=== PATIENT | male | born 1945 | race Caucasian/White ===

== ENCOUNTER 2021-12-02 12:18 | Emergency (ER) | payer MEDICARE ==
[~2021-12-02] VITALS: Ht 190.5 cm; Wt 106.6 kg
== END 2021-12-02 15:45 | disposition home or self-care (01) ==
LOC: ER 12:35
DX: M79.669 Pain in unspecified lower leg (principal); S90.422A Blister (nonthermal), left great toe, initial encounter; I10 Essential (primary) hypertension; X58.XXXA Exposure to other specified factors, initial encounter; Z88.0 Allergy status to penicillin
CPT/HCPCS: 93971; 99283